=== PATIENT | male | born 1945 | race Caucasian/White ===

== ENCOUNTER 2019-10-12 10:22 | Day surgery (SDC) | payer MEDICARE ==
[~2019-10-12] VITALS: Ht 167.6 cm; Wt 78.0 kg
[~2019-10-12 10:22] MED LIST: DIPHENHYDRAMINE 50 MG/ML, 1ML ONE
[2019-10-12] MEDS ORDERED: SODIUM CHLORIDE 0.9% 1,000 ML IV SCH (10:47)
[2019-10-12] MEDS ORDERED: DIPHENHYDRAMINE 50 MG/ML, 1ML IVPush ONE (11:00)
[2019-10-12] MEDS ORDERED: CETI10CA PO (11:04)
[2019-10-12] MEDS ORDERED: ATOR40TA78 PO (11:04)
[2019-10-12] MEDS ORDERED: TADA20TA33 PO (11:04)
[2019-10-12] MEDS ORDERED: ASPI-650 PO (11:04)
[2019-10-12] MEDS ORDERED: MULT1CAP25 PO (11:04)
[2019-10-12] MEDS ORDERED: MACI10TA PO (11:04)
[2019-10-12] MEDS ORDERED: HYDR25TA6 PO (11:04)
[2019-10-12] MEDS ORDERED: LIDOCAINE 2%, 20ML ONE (12:09)
[2019-10-12] MEDS ORDERED: FENTANYL PF 100 MCG/2ML ONE (12:09)
[2019-10-12] MEDS ORDERED: MIDAZOLAM 1 MG/ML, 5ML ONE (12:09)
[2019-10-12] MEDS ORDERED: HEPARIN 1,000 UNITS/ML, 10ML ONE (12:10)
[2019-10-12] MEDS ORDERED: VERAPAMIL 2.5 MG/ML, 2ML ONE (12:10)
== END 2019-10-12 15:05 | disposition home or self-care (01) ==
LOC: CACL 10:22
PROVIDERS: ATTEND Internal Medicine Cardiovascular Disease
DX: I27.20 Pulmonary hypertension, unspecified (principal); I25.10 Atherosclerotic heart disease of native coronary artery without angina pectoris; F17.210 Nicotine dependence, cigarettes, uncomplicated; Z86.73 Personal history of transient ischemic attack (TIA), and cerebral infarction without residual deficits
CPT/HCPCS: 33285; 93451; 99156; 99157; C1764; C1894; J1200; J2250; J3010; J1644